=== PATIENT | female | born 1945 | race Caucasian/White ===

== ENCOUNTER 2022-09-29 13:56 | Emergency (ER) | payer OTHER, MEDICAID ==
[~2022-09-29] VITALS: Ht 165.1 cm; Wt 65.0 kg
[2022-09-29] MEDS ORDERED: IPRATROPIUM BROMIDE (0.02%) 0.5MG/2.5ML NEB HHN STA (14:37)
[2022-09-29] MEDS ORDERED: METHYLPREDNISOLONE SOD SUCC 125MG/2ML (ACT-O-VIAL) IV STA (14:37)
[2022-09-29] MEDS ORDERED: ALBUTEROL (0.083%) 2.5MG/3ML NEB HHN STA (14:37)
[2022-09-29 15:17] LABS: BG BASE EXCESS 0.6 mmol/L (-2.0-2.0); BG CARBOXYHEMOGLOBIN 0.3 % (0.5-1.5); BG DEOXYHEMOGLOBIN 3.8 % (0.0-5.0); BG FRACTION INSPIRED OXYGEN 36; BG HCO3 ACT 26.3 mmol/L (22.0-26.0); BG METHEMOGLOBIN 0.4 % (0.0-1.5); BG OXYGEN SATURATION 96.2 % (92.0-98.5); BG OXYHEMOGLOBIN 95.5 % (94.0-97.0); BG PCO2 47.9 mmHg (35.0-45.0); BG PH 7.358 (7.350-7.450); BG PO2 88.8 mmHg (75.0-100.0); BG SAMPLE SITE RIGHT BRACHIAL; BG TOTAL HEMOGLOBIN 9.3 g/dL (12.0-18.0); BG VENT MODE NASAL CANNULA
[2022-09-29 15:25] LABS: CHLORIDE 111 mEq/L (98-107); INDEX HEMOLYSI 1 (1-3); INDEX ICTERIC 1 (1-4); INDEX LIPEMIC 1 (1-3); POTASSIUM 3.7 mEq/L (3.5-5.1); SODIUM 142 mEq/L (136-145)
[2022-09-29 15:28] LABS: BASOPHILS % 0.6 % (0.0-2.0); EOSINOPHILS % 0.1 % (0.0-5.0); HEMOGLOBIN. 8.9 g/dL (12.0-16.0); LYMPHOCYTES % 21.2 % (20.0-50.0); MEAN CORPUSCULAR HGB CONC 32.9 g/dL (31.0-37.0); MEAN CORPUSCULAR VOLUME 91.3 fL (81.0-99.0); MEAN PLATELET VOLUME 8.6 fl (7.4-10.4); MONOCYTES % 8.8 % (2.0-8.0); NEUTROPHILS % 69.3 % (40.0-76.0); PLATELET 490 x1000/uL (130-400); RED BLOOD CELL COUNT 2.96 mill/uL (4.2-5.4); RED CELL DISTRIBUTION WIDTH 20.2 % (11.6-14.6); WHITE BLOOD COUNT 7.3 x1000/uL (4.5-11.0)
[2022-09-29 15:41] LABS: ALANINE AMINOTRANSFERASE 22 IU/L (13-61); ALBUMIN 3.2 g/dL (3.4-5.0); ASPARTATE AMINOTRANSFERASE 34 IU/L (15-37); BILIRUBIN TOTAL 0.2 mg/dL (0.1-1.0); CALCIUM 9.4 mg/dL (8.5-10.1); CARBON DIOXIDE 26 mEq/L (21-32); CREATININE 0.7 mg/dL (0.6-1.3); GLUCOSE 104 mg/dL (70-105); NT PRO B-TYPE NATRIURETIC PEP 213 pg/mL (5-125); PROTEIN TOTAL 6.9 g/dL (6.0-8.3); TROPONIN I HIGH SENSITIVITY 7 ng/L (<54); UREA NITROGEN BLOOD 10 mg/dL (7-21)
[2022-09-29 16:00] VITALS: PULSE 98; RESP 28; O2SAT 98
[2022-09-29] MEDS ORDERED: LORAZEPAM 2MG/ML CPJ IV ONE ×3 (16:15→17:30)
[2022-09-29] MEDS ORDERED: HALOPERIDOL LACTATE 5MG/ML VIAL IM ONE (17:15)
[2022-09-29] MEDS ORDERED: DOCUSATE SODIUM 100MG CAPSULE PO PRN (18:15)
[2022-09-29] MEDS ORDERED: MAGNESIUM/ALUMINUM HYDROXIDE/SIMETHICONE 30ML UDC PO PRN (18:15)
[2022-09-29] MEDS ORDERED: IPRATROPIUM/ALBUTEROL 0.5-3(2.5)MG/3ML NEB NEB PRN (18:15)
[2022-09-29] MEDS ORDERED: ONDANSETRON HCL 4MG/2ML INJ IV PRN (18:15)
[2022-09-29] MEDS ORDERED: ACETAMINOPHEN 325MG TABLET PO PRN ×2 (18:15)
[2022-09-29] MEDS ORDERED: GUAIFENESIN 200MG/10ML SUGAR FREE UDC PO PRN (18:15)
[2022-09-29] MEDS ORDERED: CEFTRIAXONE 1GM PREMIX 50 ML IV NR (18:45)
[2022-09-29] MEDS ORDERED: SODIUM CHLORIDE 0.45% 1,000 ML IV SCH (18:45)
[2022-09-29] MEDS ORDERED: ENOXAPARIN 40MG/0.4ML SYR SUBCUT SCH (19:00)
[2022-09-29] MEDS ORDERED: AZITHROMYCIN 500MG/250ML 250 ML IV NR (19:00)
[2022-09-29 19:56] LABS: PHOSPHORUS 3.5 mg/dL (2.5-4.9)
[2022-09-29 20:02] LABS: TROPONIN I HIGH SENSITIVITY 11 ng/L (<54)
[2022-09-29 20:04] LABS: LACTIC ACID 2.6 mmol/L (0.4-2.0)
[2022-09-29 20:31] LABS: VITAMIN B12 SERUM 1829 pg/mL (211-911)
[2022-09-29 20:45] LABS: FOLIC ACID (FOLATE) SERUM > 20.00 ng/mL (>5.38)
[2022-09-29] MEDS ORDERED: FAMOTIDINE 20MG/2ML VIAL IV SCH (21:00)
[2022-09-29 21:22] VITALS: BP 140/82; PULSE 73; RESP 15; TEMP 98.1
[2022-09-30] MEDS ORDERED: ASPIRIN 81MG EC TABLET PO SCH (09:00)
[2022-09-30] MEDS ORDERED: CEFTRIAXONE 1,000 MG in DEXTROSE 5% WATER 50 ML IV SCH (13:00)
[2022-09-30] MEDS ORDERED: AZITHROMYCIN 500 MG in DEXT 5% WATER 250 ML IV SCH (14:00)
== END 2022-09-29 21:55 | disposition short-term general hospital (02) ==
LOC: ER 13:56 → EDBEDREQTM 15:33 → EDBEDREQ 15:33 → EDBEDREQSVC 15:33 → ER 21:55 → CANBEDREQ 23:02
DX: R06.02 Shortness of breath (principal); R07.89 Other chest pain; J44.9 Chronic obstructive pulmonary disease, unspecified; Z85.9 Personal history of malignant neoplasm, unspecified
CPT/HCPCS: 99291; 96374; 71045; 96361; 96375; 80053; 82607; 82746; 83880; 83540; 83550; 83605; 83690; 83735; 84100; 85025; 85379; 87040; 84484; 36415; 84145; 82805; 82375; 93005; 94644; 36600; 96372; J1630; J2060; J2930